=== PATIENT | male | born 1960 | race Two or more races ===

== ENCOUNTER 2020-05-23 08:16 | Outpatient (REF) | payer OTHER, SELFPAY ==
[2020-05-23 09:27] LABS: MANUAL DIFF FLAG NO
[2020-05-23 09:30] LABS: Basophils Percent Auto 0.5 % (0-2); Eosinophils Absolute Auto 0.2 X10*3/uL (0.0-0.4); Eosinophils Percent Auto 2.4 % (0-4); Hematocrit 37.1 % (42-52); Hemoglobin 11.3 g/dl (14.0-18.0); Imm Gran Abs Auto 0.02 X10*3/uL (0.00-0.03); Imm Gran Pct Auto 0.2 % (0.0-0.4); Lymphocytes Absolute Auto 2.9 X10*3/uL (1.2-4.9); Lymphocytes Percent Auto 34.6 % (20-40); Mean Corpuscular HGB Conc 30.5 g/dl (31.0-36.0); Mean Corpuscular Hemoglobin 26.8 pg (27.0-33.0); Mean Corpuscular Volume 87.9 fL (80-98); Mean Platelet Volume 10.9 fL (9.4-12.4); Monocytes Absolute Auto 0.8 X10*3/uL (0.1-1.2); Monocytes Percent Auto 10.1 % (2-11); Neutrophils Absolute Auto 4.3 X10*3/uL (2.0-8.3); Neutrophils Percent Auto 52.2 % (45-73); Platelet Count 348 X10*3/uL (160-400); Red Blood Count 4.22 X10*6/uL (4.60-5.80); White Blood Count 8.3 X10*3/uL (4.8-10.8)
[2020-05-23 09:59] LABS: Alanine Aminotransferase 10 U/L (0-40); Albumin Level 3.7 g/dL (3.5-5.0); Alkaline Phosphatase 133 U/L (39-117); Aspartate Amino Transferase 14 U/L (5-37); Bilirubin Direct < 0.2 mg/dL (0.0-0.5); Bilirubin Total 0.3 mg/dL (0.0-1.0); Total Protein 6.6 g/dL (6.5-8.0)
== END 2020-05-23 08:17 | disposition home or self-care (01) ==
LOC: HO.LAB 08:16
PROVIDERS: Visit Provider Internal Medicine
DX: K91.850 Pouchitis (principal)
CPT/HCPCS: 36415; 80076; 85025

== ENCOUNTER 2020-05-29 07:59 | Outpatient (REF) | payer OTHER, SELFPAY | END 2020-05-29 08:00 | disposition home or self-care (01) | LOC: HO.MDS 07:59 | PROVIDERS: Visit Provider Internal Medicine | DX: K50.90 Crohn's disease, unspecified, without complications (principal) | CPT/HCPCS: 96365; J3380 ==

== ENCOUNTER 2020-07-24 08:06 | Outpatient (REF) | payer OTHER, SELFPAY | END 2020-07-24 08:07 | disposition home or self-care (01) | LOC: HO.MDS 08:06 | PROVIDERS: Visit Provider Internal Medicine | DX: K50.90 Crohn's disease, unspecified, without complications (principal) | CPT/HCPCS: 86481; 96365; J3380 ==

== ENCOUNTER 2020-09-18 07:57 | Outpatient (REF) | payer OTHER, SELFPAY ==
[2020-09-20 23:46] LABS: TS Negative Control Passed; TS Panel A 0; TS Panel B 0; TS Positive Control Passed; TSpotTB Negative (SeeBelow)
== END 2020-09-18 07:58 | disposition home or self-care (01) ==
LOC: HO.MDS 07:57
PROVIDERS: Visit Provider Internal Medicine
DX: K50.018 Crohn's disease of small intestine with other complication (principal); K91.850 Pouchitis
CPT/HCPCS: 36415; 86481; 96365; J3380

== ENCOUNTER 2020-10-30 12:23 | Outpatient (REF) | payer OTHER, SELFPAY ==
[2020-10-30 13:05] LABS: MANUAL DIFF FLAG NO
[2020-10-30 13:09] LABS: Basophils Absolute Auto 0.1 X10*3/uL (0.0-0.2); Basophils Percent Auto 0.6 % (0-2); Eosinophils Absolute Auto 0.3 X10*3/uL (0.0-0.4); Eosinophils Percent Auto 2.6 % (0-4); Hemoglobin 10.4 g/dl (14.0-18.0); Imm Gran Abs Auto 0.02 X10*3/uL (0.00-0.03); Imm Gran Pct Auto 0.2 % (0.0-0.4); Lymphocytes Absolute Auto 2.2 X10*3/uL (1.2-4.9); Lymphocytes Percent Auto 21.8 % (20-40); Mean Corpuscular HGB Conc 28.9 g/dl (31.0-36.0); Mean Corpuscular Hemoglobin 24.9 pg (27.0-33.0); Mean Corpuscular Volume 86.3 fL (80-98); Mean Platelet Volume 10.2 fL (9.4-12.4); Monocytes Absolute Auto 0.8 X10*3/uL (0.1-1.2); Neutrophils Absolute Auto 6.7 X10*3/uL (2.0-8.3); Neutrophils Percent Auto 66.8 % (45-73); Platelet Count 448 X10*3/uL (160-400); Red Blood Count 4.17 X10*6/uL (4.60-5.80); Red Cell Distribution Width 15.3 % (11.0-16.0)
[2020-10-30 13:40] LABS: Alanine Aminotransferase 11 U/L (0-40); Albumin Level 3.3 g/dL (3.5-5.0); Alkaline Phosphatase 107 U/L (39-117); Aspartate Amino Transferase 15 U/L (5-37); Bilirubin Direct < 0.2 mg/dL (0.0-0.5); Bilirubin Total 0.2 mg/dL (0.0-1.0); C Reactive Protein 0.69 mg/dL (< or = 0.50); Total Protein 6.3 g/dL (6.5-8.0)
[2020-10-30 13:52] LABS: Erythrocyte Sedimentation Rate 29 MM/HR (0-15)
== END 2020-10-30 12:24 | disposition home or self-care (01) ==
LOC: HO.LAB 12:23
PROVIDERS: PCP Internal Medicine; Visit Provider Internal Medicine
DX: K50.018 Crohn's disease of small intestine with other complication (principal)
CPT/HCPCS: 36415; 80076; 85025; 85652; 86140

== ENCOUNTER 2020-11-13 07:16 | Outpatient (REF) | payer OTHER, SELFPAY | END 2020-11-13 07:17 | disposition home or self-care (01) | LOC: HO.MDS 07:16 | PROVIDERS: PCP Internal Medicine; Visit Provider Internal Medicine | DX: K50.90 Crohn's disease, unspecified, without complications (principal) | CPT/HCPCS: 96365; J3380 ==

== ENCOUNTER 2020-12-21 07:47 | Outpatient (REF) | payer OTHER, SELFPAY ==
[2020-12-21 08:37] LABS: MANUAL DIFF FLAG NO
[2020-12-21 08:40] LABS: Basophils Percent Auto 0.2 % (0-2); Eosinophils Percent Auto 0.4 % (0-4); Hematocrit 33.8 % (42-52); Hemoglobin 10.1 g/dl (14.0-18.0); Imm Gran Abs Auto 0.03 X10*3/uL (0.00-0.03); Imm Gran Pct Auto 0.3 % (0.0-0.4); Lymphocytes Absolute Auto 2.4 X10*3/uL (1.2-4.9); Lymphocytes Percent Auto 22.8 % (20-40); Mean Corpuscular HGB Conc 29.9 g/dl (31.0-36.0); Mean Corpuscular Hemoglobin 25.4 pg (27.0-33.0); Mean Corpuscular Volume 85.1 fL (80-98); Mean Platelet Volume 10.5 fL (9.4-12.4); Monocytes Absolute Auto 1.3 X10*3/uL (0.1-1.2); Monocytes Percent Auto 12.4 % (2-11); Neutrophils Absolute Auto 6.7 X10*3/uL (2.0-8.3); Neutrophils Percent Auto 63.9 % (45-73); Platelet Count 421 X10*3/uL (160-400); Red Blood Count 3.97 X10*6/uL (4.60-5.80); Red Cell Distribution Width 16.3 % (11.0-16.0); White Blood Count 10.4 X10*3/uL (4.8-10.8)
[2020-12-21 08:58] LABS: Alanine Aminotransferase 12 U/L (0-40); Albumin Level 3.6 g/dL (3.5-5.0); Alkaline Phosphatase 128 U/L (39-117); Aspartate Amino Transferase 16 U/L (5-37); Bilirubin Direct < 0.2 mg/dL (0.0-0.5); Bilirubin Total 0.2 mg/dL (0.0-1.0); C Reactive Protein 3.01 mg/dL (< or = 0.50); Total Protein 6.6 g/dL (6.5-8.0)
[2020-12-21 09:17] LABS: Erythrocyte Sedimentation Rate 34 MM/HR (0-15)
[2020-12-21 09:50] LABS: Leukocytes Stool Qualitative NEGATIVE (NEGATIVE)
[2020-12-21 11:18] LABS: CDIFF Ag Positive (Negative)
[2020-12-21 11:19] LABS: CDIFF Internal ctrl Dots and bkg OK (V); CDiff Toxin Negative (Negative)
[2020-12-21 13:06] LABS: CDiff Gene PCR POSITIVE (Negative)
== END 2020-12-21 07:48 | disposition home or self-care (01) ==
LOC: HO.LAB 07:47
PROVIDERS: PCP Internal Medicine; Visit Provider Internal Medicine
DX: K91.850 Pouchitis (principal); K50.90 Crohn's disease, unspecified, without complications
CPT/HCPCS: 36415; 80076; 80280; 82542; 85025; 85652; 86140; 87045; 87046; 87177; 87209; 87324; 87329; 87449; 87493; 89055

== ENCOUNTER 2021-01-10 08:15 | Outpatient (REF) | payer OTHER, SELFPAY | END 2021-01-10 08:16 | disposition home or self-care (01) | LOC: HO.MDS 08:15 | PROVIDERS: PCP Internal Medicine; Visit Provider Internal Medicine | DX: K50.90 Crohn's disease, unspecified, without complications (principal) | CPT/HCPCS: 96365; J3380 ==

== ENCOUNTER 2021-03-07 08:13 | Outpatient (REF) | payer OTHER, SELFPAY | END 2021-03-07 08:14 | disposition home or self-care (01) | LOC: HO.MDS 08:13 | PROVIDERS: PCP Internal Medicine; Visit Provider Internal Medicine | DX: K50.90 Crohn's disease, unspecified, without complications (principal) | CPT/HCPCS: 96365; J3380 ==

== ENCOUNTER 2021-05-02 08:05 | Outpatient (REF) | payer OTHER, SELFPAY | END 2021-05-02 08:06 | disposition home or self-care (01) | LOC: HO.MDS 08:05 | PROVIDERS: PCP Internal Medicine; Visit Provider Internal Medicine | DX: K50.90 Crohn's disease, unspecified, without complications (principal) | CPT/HCPCS: 96365; J3380 ==

== ENCOUNTER 2021-07-03 08:06 | Outpatient (REF) | payer OTHER, SELFPAY | END 2021-07-03 08:07 | disposition home or self-care (01) | LOC: HO.MDS 08:06 | PROVIDERS: PCP Internal Medicine; Visit Provider Internal Medicine | DX: K50.90 Crohn's disease, unspecified, without complications (principal) | CPT/HCPCS: 96365; J3380 ==

== ENCOUNTER 2021-08-29 08:40 | Outpatient (REF) | payer OTHER, SELFPAY | END 2021-08-29 08:41 | disposition home or self-care (01) | LOC: HO.MDS 08:40 | PROVIDERS: PCP Internal Medicine; Visit Provider Internal Medicine | DX: K50.018 Crohn's disease of small intestine with other complication (principal) | CPT/HCPCS: 96365; J3380 ==

== ENCOUNTER 2021-11-01 13:32 | Outpatient (REF) | payer OTHER, SELFPAY ==
[2021-11-03 19:11] LABS: TS Negative Control Passed; TS Panel A 0; TS Panel B 0; TS Positive Control Passed; TSpotTB Negative (Negative)
== END 2021-11-01 13:33 | disposition home or self-care (01) ==
LOC: HO.MDS 13:32
PROVIDERS: PCP Internal Medicine; Visit Provider Internal Medicine
DX: K50.00 Crohn's disease of small intestine without complications (principal); K91.850 Pouchitis
CPT/HCPCS: 36415; 86481; 96365; J3380

== ENCOUNTER 2021-12-27 07:55 | Outpatient (REF) | payer OTHER, SELFPAY ==
[2021-12-31 16:21] LABS: TS Negative Control Passed; TS Panel A 0; TS Panel B 0; TS Positive Control Passed; TSpotTB Negative (Negative)
== END 2021-12-27 07:56 | disposition home or self-care (01) ==
LOC: HO.MDS 07:55
PROVIDERS: PCP Internal Medicine; Visit Provider Internal Medicine
DX: K50.00 Crohn's disease of small intestine without complications (principal); K91.850 Pouchitis; Z86.73 Personal history of transient ischemic attack (TIA), and cerebral infarction without residual deficits
CPT/HCPCS: 36415; 86481; 96365; J1200; J3380

== ENCOUNTER 2022-03-21 09:51 | Outpatient (REF) | payer OTHER, SELFPAY | END 2022-03-21 09:52 | disposition home or self-care (01) | LOC: HO.MDS 09:51 | PROVIDERS: Visit Provider Internal Medicine | DX: K50.00 Crohn's disease of small intestine without complications (principal) | CPT/HCPCS: 96365; J3380 ==

== ENCOUNTER 2022-05-13 09:22 | Outpatient (REF) | payer OTHER, SELFPAY ==
[2022-05-26 08:20] LABS: Prometheus Anser VDZ SEE SEPERATE REPORT
== END 2022-05-13 09:23 | disposition home or self-care (01) ==
LOC: HO.LAB 09:22
PROVIDERS: Visit Provider Internal Medicine
DX: K91.850 Pouchitis (principal)
CPT/HCPCS: 36415; 80280; 82542

== ENCOUNTER 2022-06-13 10:17 | Outpatient (REF) | payer OTHER, SELFPAY | END 2022-06-13 10:18 | disposition home or self-care (01) | LOC: HO.MDS 10:17 | PROVIDERS: Visit Provider Internal Medicine | DX: K50.00 Crohn's disease of small intestine without complications (principal) | CPT/HCPCS: 96365; J3380 ==

== ENCOUNTER 2022-07-03 12:05 | Outpatient (REF) | payer OTHER, SELFPAY ==
[2022-07-03 12:20] LABS: MANUAL DIFF FLAG NO
[2022-07-03 13:27] LABS: Basophils Absolute Auto 0.1 X10*3/uL (0.0-0.2); Basophils Percent Auto 0.8 % (0-2); Eosinophils Absolute Auto 0.2 X10*3/uL (0.0-0.4); Eosinophils Percent Auto 2.2 % (0-4); Hematocrit 40.3 % (42.0-52.0); Hemoglobin 12.7 g/dl (14.0-18.0); Imm Gran Abs Auto 0.03 X10*3/uL (0.00-0.03); Imm Gran Pct Auto 0.3 % (0.0-0.4); Lymphocytes Absolute Auto 2.9 X10*3/uL (1.2-4.9); Lymphocytes Percent Auto 28.4 % (20-40); Mean Corpuscular HGB Conc 31.5 g/dl (31.0-36.0); Mean Corpuscular Hemoglobin 28.2 pg (27.0-33.0); Mean Corpuscular Volume 89.4 fL (80.0-98.0); Mean Platelet Volume 10.5 fL (9.4-12.4); Monocytes Absolute Auto 0.7 X10*3/uL (0.1-1.2); Monocytes Percent Auto 6.7 % (2-11); Neutrophils Absolute Auto 6.2 x10*3/uL (2.0-8.3); Neutrophils Percent Auto 61.6 % (45-73); Platelet Count 396 X10*3/uL (160-400); Red Blood Count 4.51 X10*6/uL (4.60-5.80); White Blood Count 10.1 X10*3/uL (4.8-10.8)
[2022-07-03 14:05] LABS: Erythrocyte Sedimentation Rate 25 MM/HR (0-15)
[2022-07-03 14:18] LABS: Alanine Aminotransferase 17 U/L (0-40); Albumin Level 3.7 g/dL (3.5-5.0); Alkaline Phosphatase 140 U/L (39-117); Anion Gap 13 (12-20); Aspartate Amino Transferase 22 U/L (5-37); Bilirubin Direct 0.2 mg/dL (0.0-0.5); Bilirubin Total 0.5 mg/dL (0.0-1.0); Blood Urea Nitrogen 12 mg/dL (9-16); C Reactive Protein 0.45 mg/dL (< or = 0.50); Carbon Dioxide 27 mmol/L (22-29); Chloride 108 mmol/L (96-108); Estimated Glomerular Filt Rate 40; Ferritin 194 ng/mL (20-250); Iron 32 mcg/dL (45-160); Percent Iron Saturation 17 % (15-50); Potassium 4.9 mmol/L (3.3-5.1); Sodium 143 mmol/L (135-145); Total Iron Binding Capacity 188 mcg/dL (228-428); Total Protein 6.7 g/dL (6.5-8.0); Unsaturated Iron Binding 156 ug/dL
[2022-07-03 15:05] LABS: Folate 9.7 ng/mL (> or = 4.0); Vitamin B12 1478 pg/mL (200-900)
== END 2022-07-03 12:06 | disposition home or self-care (01) ==
LOC: HO.LAB 12:05
PROVIDERS: Visit Provider Internal Medicine
DX: K91.850 Pouchitis (principal); R19.7 Diarrhea, unspecified
CPT/HCPCS: 36415; 80051; 80076; 82565; 82607; 82728; 82746; 83540; 84520; 85025; 85652; 86140

== ENCOUNTER 2022-09-30 08:44 | Outpatient (REF) | payer OTHER, SELFPAY | END 2022-09-30 08:45 | disposition home or self-care (01) | LOC: HO.MDS 08:44 | PROVIDERS: Visit Provider Internal Medicine | DX: K50.00 Crohn's disease of small intestine without complications (principal) | CPT/HCPCS: 96365; J3380 ==

== ENCOUNTER 2022-11-25 08:06 | Outpatient (REF) | payer OTHER, SELFPAY ==
[2022-11-27 22:59] LABS: TS Negative Control Passed; TS Panel A 1; TS Panel B 0; TS Positive Control Passed; TSpotTB Negative (Negative)
== END 2022-11-25 08:07 | disposition home or self-care (01) ==
LOC: HO.MDS 08:06
PROVIDERS: Visit Provider Internal Medicine
DX: K50.90 Crohn's disease, unspecified, without complications (principal); K91.850 Pouchitis; Z79.899 Other long term (current) drug therapy
CPT/HCPCS: 36415; 86481; 96365; J3380

== ENCOUNTER 2023-01-20 07:45 | Outpatient (REF) | payer OTHER, SELFPAY | END 2023-01-20 07:46 | disposition home or self-care (01) | LOC: HO.MDS 07:45 | PROVIDERS: PCP Internal Medicine; Visit Provider Internal Medicine | DX: K50.90 Crohn's disease, unspecified, without complications (principal) | CPT/HCPCS: 96365; J3380 ==

== ENCOUNTER 2023-03-17 08:01 | Outpatient (REF) | payer OTHER, SELFPAY | END 2023-03-17 08:02 | disposition home or self-care (01) | LOC: HO.MDS 08:01 | PROVIDERS: Visit Provider Internal Medicine | DX: K50.90 Crohn's disease, unspecified, without complications (principal) | CPT/HCPCS: 96365; J3380 ==

== ENCOUNTER 2023-06-30 08:26 | Outpatient (REF) | payer OTHER, SELFPAY | END 2023-06-30 08:27 | disposition home or self-care (01) | LOC: HO.MDS 08:26 | PROVIDERS: Visit Provider Internal Medicine | DX: K50.90 Crohn's disease, unspecified, without complications (principal) | CPT/HCPCS: 96365; J3380 ==

== ENCOUNTER 2023-08-26 08:27 | Outpatient (REF) | payer OTHER, SELFPAY | END 2023-08-26 08:28 | disposition home or self-care (01) | LOC: HO.MDS 08:27 | PROVIDERS: Visit Provider Internal Medicine | DX: K50.90 Crohn's disease, unspecified, without complications (principal) | CPT/HCPCS: 96365; 96375; J3380 ==

== ENCOUNTER 2023-10-21 12:06 | Outpatient (REF) | payer OTHER, SELFPAY ==
[2023-10-21 12:19] VITALS: BP 108/57; PULSE 76; RESP 20; TEMP 37.2; O2SAT 99
[2023-10-21] MEDS: Acetaminophen 325 MG TABLET 975 MG PO (12:31)
[2023-10-21] MEDS: Vedolizumab 300 MG in 0.9 % Sodium Chloride 250 ML 510 MG IV (13:42)
== END 2023-10-21 12:07 | disposition home or self-care (01) ==
LOC: HO.MDS 12:06
PROVIDERS: Visit Provider Internal Medicine
DX: K50.90 Crohn's disease, unspecified, without complications (principal)
CPT/HCPCS: 96365; J3380

== ENCOUNTER 2025-01-17 14:05 | Outpatient (REF) | payer OTHER, SELFPAY ==
[2025-01-17 14:23] LABS: MANUAL DIFF FLAG NO
[2025-01-17 14:46] LABS: Basophils Absolute Auto 0.1 X10*3/uL (0.0-0.2); Basophils Percent Auto 0.7 % (0-2); Eosinophils Absolute Auto 0.2 X10*3/uL (0.0-0.4); Eosinophils Percent Auto 3.2 % (0-4); Hematocrit 31.7 % (42.0-52.0); Hemoglobin 9.5 g/dl (14.0-18.0); Imm Gran Abs Auto 0.02 X10*3/uL (0.00-0.03); Imm Gran Pct Auto 0.3 % (0.0-0.4); Lymphocytes Absolute Auto 1.5 X10*3/uL (1.2-4.9); Mean Corpuscular Hemoglobin 24.9 pg (27.0-33.0); Mean Corpuscular Volume 83.2 fL (80.0-98.0); Mean Platelet Volume 10.9 fL (9.4-12.4); Monocytes Absolute Auto 0.6 X10*3/uL (0.1-1.2); Monocytes Percent Auto 8.3 % (2-11); Neutrophils Absolute Auto 4.8 x10*3/uL (2.0-8.3); Neutrophils Percent Auto 66.5 % (45-73); Platelet Count 349 X10*3/uL (160-400); Red Blood Count 3.81 X10*6/uL (4.60-5.80); Red Cell Distribution Width 15.9 % (11.0-16.0); White Blood Count 7.3 X10*3/uL (4.8-10.8)
[2025-01-17 15:21] LABS: Alanine Aminotransferase 7 U/L (0-40); Albumin Level 3.5 g/dL (3.5-5.0); Alkaline Phosphatase 71 U/L (39-117); Anion Gap 12 (12-20); Aspartate Amino Transferase 15 U/L (5-37); Bilirubin Direct < 0.2 mg/dL (0.0-0.5); Bilirubin Total 0.1 mg/dL (0.0-1.0); Blood Urea Nitrogen 22 mg/dL (9-16); C Reactive Protein 0.55 mg/dL (< or = 0.50); Carbon Dioxide 30 mmol/L (22-29); Chloride 107 mmol/L (96-108); Estimated Glomerular Filt Rate 47; Glucose Random 150 mg/dL (60-115); Iron 12 mcg/dL (45-160); Percent Iron Saturation 6 % (15-50); Potassium 4.4 mmol/L (3.3-5.1); Sodium 145 mmol/L (135-145); Total Iron Binding Capacity 215 mcg/dL (228-428); Total Protein 6.2 g/dL (6.5-8.0); Unsaturated Iron Binding 203 ug/dL
[2025-01-17 15:23] LABS: Erythrocyte Sedimentation Rate 23 MM/HR (0-15)
[2025-01-17 15:36] LABS: Ferritin 14 ng/mL (20-250)
[2025-01-17 15:46] LABS: Folate 18.5 ng/mL (> or = 4.0); Vitamin B12 715 pg/mL (200-900)
--- OUTSIDE RECORDS SUMMARY | 2025-01-17 17:11 | XMS_ITS | Data Portability ---
Author Organization [place] [facility], Main Office Address [address] [place] [phone] Assessment Encounter Date Assessment Date Assessment LastModified by Organization Details LastModified Time 04/22/2021 04/22/2021 Patient presente d to office today for their Medicare Annual Wellness Visit. Education was provided on healthy nutrition, including a diet rich in fruits and vegetables, minimizing simple carbohydrates, salt, and saturated fats. Encouraged regular cardiovascular exercise such as walking at least 30 minutes daily, 5 times per week. Emphasized preventive health measures and educated pt on fall prevention and community-based lifestyle interventions to help reduce health risks and promote healthy living. [email or web address] Not available 04/21/2021 17:40:35 Plan of Treatment Reminders Order Date Submit Date Provider Last Modified By Organization Details Last Modified Time Details Appointments None recorded. Lab None recorded. Referral None recorded. Procedures None recorded. Surgeries None recorded. Imaging None recorded. Medication Orders zolpidem 10 mg tablet [address] [facility] #[id number], [address] [place], [address], 16:49:24 ferrous sulfate 325 mg (65 mg iron) tablet [address] [facility] #[id number], [address] [place], [address], 13:57:08 Vitamin C 500 mg tablet [address] [facility] #4471, [address] [place], [address], 13:57:08 cetirizine 10 mg tablet 2020 021 [facility], [address] [place], [address], 09:11:31 fluticason e propionate 50 mcg/actuat ion nasal spray,susp ension 2020 021 [facility], [address] [place], [address], 1 09:11:28 montelukas t 10 mg tablet 2020 021 [facility], [address] [place], [address], 1 09:11:29 metformin 500 mg tablet 2020 021 [facility], [address] [place], [address], 1 09:11:33 Mayito Multivitam in For Men 200 mcg-175 mcg-250 mcg tablet 2020 021 [facility], [address] [place], [address], 1 09:11:28 Oyster Shell Calcium-Vi tamin D3 500 mg-5 mcg (200 unit) tablet 2020 021 [email or web address] [facility]/Pharmacy #4471, [address] [place], [address], 1 13:07:28 omeprazole 20 mg capsule,de layed release 2020 021 [facility], [address] [place], [address], 1 09:11:33 atorvastat in 40 mg tablet 2020 021 [facility], [address] [place], [address], 1 09:11:32 ProAir HFA 90 mcg/actuat ion aerosol inhaler 2020 021 INTERFACE [facility]acy #4471, [address] [place], [address], 09:11:31 Mapap Arthritis Pain 650 mg tablet,ext ended release 2020 021 INTERFACE [facility]armacy #4471, [address] [place], [address], 09:11:30 aspirin 25 mg-dipyrid amole 200 mg capsule,ex t.release 12 hr multiphase 2020 021 INTERFACE [facility]armacy #4471, [address] [place], [address], 09:11:32 meloxicam 15 mg tablet 2020 021 INTERFACE [facility] #4471, [address] [place], [address], 09:11:33 metoprolol succinate ER 50 mg tablet,ext ended release 24 hr 2020 021 INTERFACE [facility] #4471, [address] [place], [address], 09:11:30 ferrous sulfate 325 mg (65 mg iron) tablet 2020 021 INTERFACE [facility] #4471, [address] [place], [address], 09:11:34 Patient TargetsNo targets recorded. Patient Instructions Encounter Date Encounter Id Patient Instructions Last Modified By Organization Details Last Modified Time 04/10/2021 [id number] CPE labs-p [email or web address] Not available 03/27 16:50:46 04/22/2021 [id number] advance care planning: care instructions [email or web address] Not available 04/22/2021 15:43:47 Discussed and explained advance directives such as standard forms to the patient. Face to face discussion lasted for a duration of 30___ minutes. [email or web address] Not available 04/21/2021 17:43:04 Reason for Referral None Reported. Results Created Date Observation Date Name Description Value Unit Range Abnormal Flag Note LastModifiedBy Organization Detail LastModifiedTime Result Notes None recorded. Problems Name Problem SNOMED Code Status Onset Date Resolution Date Notes Provider Name and Address Organization Details Recorded Time Chronic disease 79715079 Completed 201903/16/2020 [employer], [facility] 0 10:38:31 History of colectomy 369948525 Active 2019 [employer], [facility] 0 10:32:23 Depressiv e disorder 72341761 Active 2019 [employer], [facility] 0 10:33:57 Hyperchol esterolem ia 21369769 Active 2019 [employer], [facility] 0 10:36:21 Gastroeso phageal reflux disease 501780790 Active 2019 [employer], [facility] 0 10:36:40 Insomnia 289445192 Active 2019 [employer], [facility] 0 10:37:27 Type 2 diabetes mellitus 00030593 Completed 201903/16/2020 Jareth Carlos, DO [address] [facility],[address], [place], [address] , [facility] 0 11:58:17 Crohn's disease 80205468 Active 2019 [employer], [facility] 0 10:38:46 Iron deficienc y anemia 16322400 Active 2019 [employer], [facility] 0 10:40:22 CVA - cerebrova scular accident due to cerebral artery occlusion 472972751 Active 2019 Jareth Carlos, DO [address] [facility],[address], [place], [address] , [place] [facility] 0 11:50:39 Ataxic gait 83579165 Active 2019 Jareth Carlos, DO [address] [facility],[address], [place], [address] , [employer], [employer] 0 11:51:02 Multiple complicat ions due to type 2 diabetes mellitus Completed 201903/16/2020 Jareth Carlos, DO [address] [facility],[address], [place], [address] , [employer], [employer] 0 12:03:19 Cholecyst ectomy Active 2019 Jareth Carlos, DO [address] [facility],[address], [place], [address] , [employer], [employer] 0 11:51:37 Appendect ana Active 2019 Jareth Carlos DO [address] [facility],[address], [place], [address] , [employer], [employer] 0 11:51:54 Tonsillec ting Active 2019 Jareth Carlos, DO [address] [facility],[address], [place], [address] , [employer], [employer] 0 11:52:00 Recurrent falls 748921990 Active 2019 Jareth Carlos, DO [address] [facility],[address], [place], [address] , [employer], [employer] 0 11:54:33 Heavy tobacco smoker 50490170885 4103 Active 2019 Jareth Carlos, DO [address], [place], [address] , [employer], [employer] 0 11:54:56 Tattoo of skin 10484676168 2 Active 2019 Jareth Carlos DO [address] [facility],[address], [place], [address] , [employer], [employer] 0 12:04:46 Active or passive immunizat ion Completed 201910/07/2020 STEVO GODDARD [facility] 1 12:33:09 Tension-t ype headache 237896537 Active 2019 FRANCY [facility] 0 03:43:05 At increased risk of nutrition al deficit 920119439 Active 2019 FRANCY hall [facility] 0 04:00:58 Screening for malignant neoplasm of colon Active 2019 FRANCY hall [facility] 0 04:14:09 Impaired glucose tolerance 8543041 Active 2019 [place] [facility] 0 04:40:38 Prostate specific antigen above reference range 949152697 Active 2019 Jareth Carlos, DO [address], [place], [address] , [facility] 0 10:12:03 Dry eyes 650417345 Active 2019 Jareth Carlos, DO [address], [place], [address] , [facility] 0 10:12:06 Crohn's disease of colon 37756956 Active 2019 Jareth Carlos, DO [address], [place], [address] , [facility] 0 10:12:08 Edema of lower extremity 881957058 Active 2019 Jareth Carlos DO [address], [place], [address] , [facility] 0 10:12:10 Problem Notes None recorded. Procedures Surgical History Date Name Laterality Status Provider Name and Address Organization Details Recorded Time Total Colectomy completed GHANSHYAM CANTU [facility] 03/16/2020 10:44:23 Imaging Results None recorded. Procedure Notes None recorded. Medical Equipment None Reported. Allergies No known drug allergies Medications Name Sig Start Date Stop Date Status Note LastModified by Organization Details LastModified Time fluoxetine 40 mg capsule TOME 1 C PSULA POR V A ORAL CADA MA THOM active Not Available Not Available No t Available atorvastat in 40 mg tablet TOME SHANTEL TABLETA TODOS LOS D active Not Available Not Available No t Available metformin 500 mg tablet TOME SHANTEL TABLETA DOS VECES AL JENNIFER active Not Available Not Available No t Available aspirin 25 mg-dipyrid amole 200 mg capsule,ex t.release 12 hr multiphase TOME SHANTEL CAPSULA DOS VECES AL JENNIFER active Not Available Not Available No t Available atorvastat in 80 mg tablet Take 1 tablet every day by oral route at bedtime. 06/05 completed Not Available Not Available Not Available Vitamin C 500 mg tablet TOME SHANTEL TABLETA TODOS LOS D active Not Available Not Available No t Available loperamide 2 mg capsule TOME 2 C PSULAS CUATRO VECES AL D A CUANDO SEA NECESARI O active Not Available Not Available No t Available cetirizine 10 mg tablet TOME SHANTEL TABLETA TODOS LOS D active Not Available Not Available No t Available metoprolol succinate ER 50 mg tablet,ext ended release 24 hr TOME SHANTEL TABLETA TODOS LOS REGALADO active Not Available Not Available No t Available meloxicam 15 mg tablet TOME SHANTEL TABLETA TODOS LOS D CUANDO SEA NECESARI O 2020 active Not Available Not Available Not Avai lable prednisone 5 mg tablet PLEASE SEE ATTACHED FOR DETAILED DIRECTIO NS active Not Available Not Available No t Available quetiapine 200 mg tablet 03/16 completed Not Available Not Available Not Available metronidaz ole 500 mg tablet 05/15 completed Not Available Not Available Not Available ciprofloxa ciarra 500 mg tablet TOME SHANTEL TABLETA CADA 12 HORAS POR 10 D 05/15 completed Not Available Not Available Not Available aspirin 81 mg tablet,del ayed release Take 1 tablet every day by oral route for 90 days. 03/16 completed Not Available Not Available Not Available quetiapine 100 mg tablet 10/07 completed Not Available Not Available Not Available vancomycin 125 mg capsule TOME 1 C PSULA POR V A ORAL CADA SEIS HORAS active Not Available Not Available No t Available cyprohepta dine 4 mg tablet Take 1 tablet every day by oral route at bedtime for 30 days. active Not Available Not Available No t Available dicyclomin e 20 mg tablet Take 1 tablet every day by oral route for 90 days. active Not Available Not Available No t Available ferrous sulfate 325 mg (65 mg iron) tablet TOME SHANTEL TABLETA TODOS LOS REGALADO active Not Available Not Available No t Available nicotine 21 mg/24 hr daily transderma l patch APPLY 1 PATCH TOPICALL Y TO SKIN ONCE DAILY active Not Available Not Available No t Available omeprazole 20 mg capsule,de layed release TOME SHANTEL C PSULA TODOS LOS D active Not Available Not Available No t Available montelukas t 10 mg tablet TOME SHANTEL TABLETA TODOS LOS REGALADO active Not Available Not Available No t Available zolpidem 10 mg tablet TOME SHANTEL TABLETA TODOS LOS D AL ACOSTARS E 2020 active Not Available Not Available Not Avai lable albuterol sulfate HFA 90 mcg/actuat ion aerosol inhaler TOME DOS INHALACI ONES POR V A ORAL CADA CUATRO HORAS active Not Available Not Available No t Available fluoxetine 20 mg capsule TOME SHANTEL C PSULA TODOS LOS D EN LA MA THOM active Not Available Not Available No t Available fluticason e propionate 50 mcg/actuat ion nasal spray,susp ension SPRAY 1 SPRAY INTO EACH NOSTRIL TODOS LOS D active Not Available Not Available No t Available amitriptyl ine 100 mg tablet Take 1 tablet every day by oral route at bedtime for 30 days. active Not Available Not Available No t Available Artificial Tears (polyvinyl alcohol) 1.4 % eye drops APPLY 2 DROP(S) EVERY DAY BY OPHTHALM IC ROUTE FOR 30 DAYS. active Not Available Not Available No t Available amoxicilli n 875 mg-potassi um clavulanat e 125 mg tablet TOME SHANTEL TABLETA POR V?A ORAL CADA DOCE HORAS POR 7 D? 03/16 completed Not Available Not Available Not Available amoxicilli n 500 mg-potassi um clavulanat e 125 mg tablet TOME SHANTEL TABLETA POR V A ORAL CADA OCHO HORAS POR 7 REGALADO 03/16 completed Not Available Not Available Not Available Oyster Shell Calcium-Vi tamin D3 500 mg-5 mcg (200 unit) tablet TOME DOS TABLETAS POR V A ORAL TODOS LOS D active Not Available Not Available No t Available Mapap Arthritis Pain 650 mg tablet,ext ended release TAKE 2 TABLET(S ) EVERY 8 HOURS BY ORAL ROUTE NEEDED. active Not Available Not Available No t Available mirtazapin e 7.5 mg tablet Take 1 tablet every day by oral route at bedtime. active Not Available Not Available No t Available Boostrix Tdap 2.5 Lf unit-8 mcg-5 Lf/0.5 mL intramuscu lar suspension PHARMACY ADMINIST ERED 06/05 completed Not Available Not Available Not Available Humira Pen 40 mg/0.8 mL subcutaneo us kit Inject 1 mL every day by sub-q route for 28 days. 03/16 completed Not Available Not Available Not Available quetiapine 50 mg tablet TOME SHANTEL TABLETA POR V A ORAL AL ACOSTARS E CUANDO SEA NECESARI O active Not Available Not Available No t Available diclofenac 1 % topical gel APPLY 2 GRAMS TO THE AFFECTED AREA CUATRO VECES AL D A active Not Available Not Available No t Available Mayito Multivitam in For Men 200 mcg-175 mcg-250 mcg tablet Take 1 tablet every day by oral route in the morning for 30 days. 2020 active Not Available Not Available Not Avai lable Spectravit e Ultra Men 50 Plus 300 mcg-60 mcg-600 mcg-300 mcg tablet TOME SHANTEL TABLETA TODOS LOS REGALADO EN LA [facility] 10/08 completed Not Available Not Available Not Available Glucerna 1.5 Schuyler 0.08 gram-1.5 kcal/mL oral liquid Take 237 mL 3 times a day by oral route. 05/15 completed taking ensure Not Available Not Available Not Available Shingrix (PF) 50 mcg/0.5 mL intramuscu lar suspension , kit 06/05 completed Not Available Not Available Not Available Afluria Qd 2018- (36 mos up)(PF)60 mcg (15 mcg x4)/0.5 mL IM syringe 03/16 completed Not Available Not Available Not Available Fluzone Quad (PF) 60 mcg (15 mcg x 4)/0.5 mL IM syringe TO BE ADMINIST ERED BY PHARMACI ST FOR IMMUNIZA TION 06/05 completed Not Available Not Available Not Available Vitals Date Recorded Body height Heart rate Respiratory rate Body temperature Body mass index (BMI) Body weight Oxygen saturation Oxygen saturation in Arterial blood by Pulse oximetry Systolic blood pressure Diastolic blood pressure Provider Name and Address Organization Details Last Updated DateTime 1 165.1 cm 70 /min 16 /min 98.3 [degF] 21 kg/m2 18300.6 4 g 98 % 98 % 100 mm[Hg] 60 mm[Hg] GHANSHYAM AGRAWALIO [facility] 1 08:51:24 Social History Question Answer Notes LastModified by [employer] Details LastModified Time Tobacco Smoking Status Current Some Day Smoker GHANSHYAM ELLISONJHON hall [facility] 03/16/2020 10:42:48 Do You Have An Advance Directive? No Information not available 03/16/2020 What Is Your Level Of Caffeine Consumption? Moderate Information not available 03/16/2020 How Much Tobacco Do You Chew? None Information not available 03/16/2020 What Type Of Diet Are You Following? REGULAR Information not available 03/16/2020 Which Illicit Or Recreational Drugs Have You Used? Denied Information not available 03/16/2020 Are There Any Guns Present In Your Home? No Information not available 03/16/2020 Hard Of Hearing Or Deaf In One Or Both Ears? No Information not available 03/16/2020 Legally Blind In One Or Both Eyes? No Information no t available 03/16/2020 Live Alone Or With Others? Alone Information not available 03/16/2020 How Many Children Do You Have? 9+ 13 Information not available 03/16/2020 Seat Belts Used Routinely Yes Information not available 03/16/2020 Are You Sexually Active? No Information not available 03/16/2020 Smoke Alarm In Home Yes Information not available 03/16/2020 How Much Tobacco Do You Smoke? 1 PPW Information not available 03/16/2020 General Stress Level Low Information not available 03/16/2020 Sex: Unknown Functional Status Question Answer Note LastModified by [employer] Details LastModified Time What is your level of alcohol consumption? None Information not available 03/16/2020 Are you currently employed? No Information not available 03/16/2020 Are you able to walk? YESASSIST Information not available 03/16/2020 Are you able to care for yourself? Yes Information not available 03/16/2020 What is your exercise level? None Information not available 03/16/2020 Mental Status None recorded. Family History Nothing Reported. Medical History Condition Response Coronary Artery Disease N Gout N Other N Blood Diseases N Kidney Stones N Hyperthyroidism N Blood Transfusion N Breast Cancer N Depression Y COPD N Lung Disease N Hypothyroidism N Developmental or Behavioral Disorders N Defects or Inherited Disease N Breast Problem N Difficulty Swallowing N Anesthesia Complications N Meniere's disease N Anxiety Disorder Y Muscle, Joint, or Bone Problems N Obesity N Vision or Eye Problems N Arthritis N Polyps N Infertility N Mental Disorder N Cancer N Varicosities N Stroke N Endometriosis N Bladder or Kidney Problems N High Cholesterol Y Liver Disease N Headaches N Fibromyalgia N Kidney Disease N Allergies/Hayfever N Heart Problems N Ear or Hearing Problems N Hospitalizations N Thyroid Problems N GI Problems N ADD/ADHD N Skin Problems N Eating Disorder N Anemia Y MRSA exposure N Constipation N Mental Illness N Ovarian Cancer N Diabetes Y Bedwetting N Seizures/Epilepsy N Tuberculosis N AIDS/HIV N Congestive Heart Failure (CHF) N Eczema N Diverticulitis N Abuse/Domestic Violence N Asthma N Reflux/GERD Y Hepatitis N Heart Disease N Pulmonary Embolism N Chronic Ear Infections N Pre-Eclampsia N Hypertension N Chicken Pox N Autism Spectrum Disorder (ASD) N Osteoporosis N Thrombophilias N Immunizations Vaccine Type Date Status Note Provider Nam e and Address Organization Details Recorded Time Influenza, split virus, quadrivalent, preservative 9 completed GHANSHYAM hall [facility] 04/12/2020 14:42:36 Influenza, split virus, quadrivalent, preservative 0 completed Jareth Carlos DO [address] [place] [address],[address], [address], [facility] 06/05/2020 09:42:54 zoster recombinant 0 completed Jareth Carlos DO [address] [place] [address],[address], [address], [facility] 06/05/2020 09:43:24 Tdap 0 completed Jareth Carlos DO [address] [place] [address],[address], [place], [address], [facility] 06/05/2020 09:43:41 COVID-19, subunit, rS-nanoparticle+M atrix-M1 Adjuvant, PF, 0.5 mL 1 completed Maggie hall [place] [facility] 12/24/2020 10:11:45 COVID-19, subunit, rS-nanoparticle+M atrix-M1 Adjuvant, PF, 0.5 mL 1 completed Maggie hall, [employer] [facility] 01/12/2021 14:45:41 Past Encounters Encounter ID Performer Location Encounter Start Date Encounter Closed Date Diagnosis/Indication Diagnosis SNOMED-CT Code Diagnosis ICD10 Code Diagnosis Note [id number] DO WESTLEY Bergman [address] [place] [address] 03/16/2020 09:29:46 03/16/2020 12:12:29 Crohn's disease 00650577 K50.90 f/u w/GI: Dr Rakan Adames Ataxic gait 83657435 R26 .0 cane CVA - cere brovascular accident due to cerebral artery occlusion 783735951 I63.50 atorv 80, asa/dip Gastroesop hageal reflux disease 340757025 K21.9 Depressive disorder 3548 9007 F32.9 cont rx Heavy tobacco smoker 879 7435990 64643 Z72.0 Hypercholesterolemia 136 06374 E78.2 atrov 80 Insomnia 636820721 G47.0 0 cont rx Iron defic iency anemia 02831620 D50.9 ck labs New patien t screening done 591699373 Z76.89 Viral screening 03402357 4 Z11.59 Active or passive immunization 434188744 Z23 Nutritional disorder 249 2009 E46 Anorexia symptom 4962215 05 R63.0 Recurrent falls 69846938 2 R29.6 Hypertensive disorder 38 076042 I10 Urinary incontinence 165 378293 R32 Pain of right thigh 3169 247015 82647 M79.651 [id number] DO WESTLEY Bergman [address] [address] 04/13/2020 13:34:20 04/13/2020 16:25:17 Screening for malignant neoplasm of colon 889697220 Z12.11 Adult heal th examination 421971471 Z00.01 normal cpe labs reviewed Screening for cardiovascular system disease 455258849 Z13.6 CVA - cere brovascular accident due to cerebral artery occlusion 734491424 I63.50 atorv 80, asa/dip Crohn's disease 19641948 K50.90 f/u w/GI: Dr Rakan Adames Ataxic gait 54891933 R26 .0 cane Gastroesop hageal reflux disease 607259609 K21.9 Depressive disorder 3548 9007 F32.9 cont rx Heavy tobacco smoker 853 5647541 40303 Z72.0 Hypercholesterolemia 136 51597 E78.2 atrov 80 Insomnia 934579903 G47.0 0 cont rx Viral screening 54316099 4 Z11.59 Active or passive immunization 484242324 Z23 Anorexia symptom 0593656 05 R63.0 Recurrent falls 37104381 2 R29.6 Hypertensive disorder 38 400041 I10 Urinary incontinence 165 006627 R32 Pain of right thigh 3169 856608 89682 M79.651 [id number] Jareth Carlos [facility] [address] [place] [address] 05/15/2020 09:33:52 05/15/2020 12:54:21 Active or passive immunization 242358079 Z23 flu, shingles, Tdap CVS-p Iron defic iency anemia 67466431 D50.9 ck labshgb 9.0,hct34. 3, RDW 19, MCH24.3 04/13/20 serum ferritin/T IBC-p Insomnia 802704381 G47.0 0 quetiapine 100 stable w/meds Gastroesop hageal reflux disease 808296942 K21.9 omeprazole 20 Hypercholesterolemia 136 30889 E78.2 Chol 144, Trig 133, HDL 70, LDL 47.4 04/13/20 atrov 80 decreased to 40 Ataxic gait 24051242 R26 .0 cane Crohn's disease 19959159 K50.90 f/u w/GI: Dr Rakan Adames dicyclomin e 20 stable Heavy tobacco smoker 218 4247248 05421 Z72.0 cont.to smoke 4-5 cig/day, ready to quit req cessation assistance nicotine 21 mg/24 hr daily TD t/i risk factors and non-smokin g TD on At [facility] ed risk of nutritional deficit 831053642 Z91.89 MVI, calcium-vi t D3 Ensure nut. supp Depressive disorder 3548 9007 F32.9 cont rx denies s/sx's stable w/meds CVA - cere brovascular accident due to cerebral artery occlusion 755021275 I63.50 atorv 40, asa/dip Tension-type headache 39 7159475 G44.209 Mapap 650 Screening for malignant neoplasm of colon 569450165 Z12.11 colonoscop y @[facility] - Dr. Nolberto Adames request report-p Prostate s pecific antigen above reference range 494147681 R97.20 PSA-5.20 04/13/20 Urology referral-p Impaired g lucose tolerance 4580984 R73.02 Hba1c 5.8 04/13/20 NCS diet, lifestyle change [id number] Jareth Carlos [facility] [address] [place] [address] 06/05/2020 08:52:29 06/05/2020 10:26:36 Impaired glucose tolerance 9981280 R73.02 Hba1c 5.8 04/13/20 NCS diet, lifestyle change Metformin 500 mg bid Gastroesop hageal reflux disease 255878686 K21.9 omeprazole 20 Insomnia 249273453 G47.0 0 quetiapine 50 stable w/meds Hypercholesterolemia 136 82696 E78.2 Chol 144, Trig 133, HDL 70, LDL 47.4 04/13/20 atrov 80 decreased to 40 Iron defic iency anemia 65899772 D50.9 ck labshgb 9.0,hct34. 3, RDW 19, MCH24.3 04/13/20 serum ferritin/T IBC-p Active or passive immunization 852707563 Z23 UTD- records requested Ataxic gait 98705550 R26 .0 cane Crohn's disease 97777614 K50.90 f/u w/GI: Dr Rakan Adames dicyclomin e 20 stable Heavy tobacco smoker 179 4594641 53986 Z72.0 cont.to smoke 4-5 cig/day, ready to quit req cessation assistance nicotine 21 mg/24 hr daily TD t/i risk factors and non-smokin g TD on reports stopped smoking on 05/19/20 reports nicotine patch was helpful. At [facility] ed risk of nutritional deficit 753103523 Z91.89 MVI, calcium-vi t D3 Ensure nut. supp Tension-type headache 39 8539565 G44.209 Mapap 650 Depressive disorder 3548 9007 F32.9 cont rx denies s/sx's stable w/meds followed by psych CVA - cere brovascular accident due to cerebral artery occlusion 993858424 I63.50 atorv 40, asa/dip Screening for malignant neoplasm of colon [id number] Z12.11 colonoscop y @[facility] - Dr. Nolberto Adames request report-p Prostate s pecific antigen above reference range 132065628 R97.20 PSA-5.20 04/13/20 Urology referral-p Dry eyes 445338814 H04.1 29 artificial tears Crohn's di sease of colon 25899678 K50.10 Entyvio infusions @ [facility] followed by Nolberto Adames Edema of l ower extremity 314102646 R60.0 compressio n stocking Tattoo of skin 488731940 1 02 L81.8 face tattoo Allergic rhinitis 531616 04 J30.9 cetirizine 10 mg, fluticason e, montelukas t 10 Asthma 012570885 J45.90 9 05181 Jareth Carlos [facility] [address] [place] [address] 2020 08:46:48 2020 09:29:05 Impaired glucose tolerance 8338371 R73.02 Hba1c 5.8 04/13/20 NCS diet, lifestyle change Metformin 500 mg bid Gastroesop hageal reflux disease 238962548 K21.9 omeprazole 20 Insomnia 978169522 G47.0 0 quetiapine 50 stable w/meds Not taking quetiapine as he feels is not helpful On Zolpidem 10 mg Has visit with new psych today Hypercholesterolemia 136 68650 E78.2 Chol 144, Trig 133, HDL 70, LDL 47.4 04/13/20 atrov 80 decreased to 40 Allergic rhinitis 576906 04 J30.9 cetirizine 10 mg, fluticason e, montelukas t 10 Asthma 803050346 J45.90 9 On Proair Tension-type headache 39 4871076 G44.209 Mapap 650 Iron defic iency anemia 95228756 D50.9 ck labshgb 9.0,hct34. 3, RDW 19, MCH24.3 04/13/20 serum ferritin/T IBC-p Active or passive immunization 634903983 Z23 UTD- records requested Heavy tobacco smoker 490 9011893 42195 Z72.0 cont.to smoke 4-5 cig/day, ready to quit req cessation assistance nicotine 21 mg/24 hr daily TD t/i risk factors and non-smokin g TD on reports stopped smoking on 05/19/20 reports nicotine patch was helpful. Reports restating smoking yesterday due to stress. Offered patches again but will hold off Ataxic gait 43687662 R26 .0 cane Referred to neurology on 06/05/20-p Crohn's disease 78729788 K50.90 f/u w/GI: Dr Rakan Adames dicyclomin e 20 stable Entyvio infusions @ [facility] followed by Nolberto Adames At [facility] ed risk of nutritional deficit 120506963 Z91.89 MVI, calcium-vi t D3 Ensure nut. supp Depressive disorder 3548 9007 F32.9 cont rx denies s/sx's stable w/meds followed by psych CVA - cere brovascular accident due to cerebral artery occlusion 619094993 I63.50 atorv 40, asa/dip Referred to neurology on 06/05/20-p Screening for malignant neoplasm of colon 154315155 Z12.11 colonoscop y @[facility] - Dr. Nolberto Adames request report-p Prostate s pecific antigen above reference range 051225574 R97.20 PSA-5.20 04/13/20 Urology referral-p Dry eyes 234748855 H04.1 29 artificial tears Edema of l ower extremity 167020954 R60.0 compressio n stocking Tattoo of skin 794987920 1 02 L81.8 face tattoo Skin hypopigmented 28915 000 L81.5 Referral to dermatolog y 42733 Jareth Carlos DO [facility] [address] [place] [address] 08/08/2020 08:44:05 08/08/2020 09:06:45 Hypercholesterolemia 10667336 E78.2 Chol 144, Trig 133, HDL 70, LDL 47.4 04/13/20 atrov 80 decreased to 40 Tolerating Atorvastat in 40 mg. No side effects Gastroesop hageal reflux disease 164749415 K21.9 omeprazole 20 Sees GI Insomnia 510235008 G47.0 0 quetiapine 50 stable w/meds Not taking quetiapine as he feels is not helpful On Zolpidem 10 mg Has visit with new psych today-p Impaired g lucose tolerance 9675743 R73.02 Hba1c 5.8 04/13/20 NCS diet, lifestyle change Metformin 500 mg bid Crohn's disease 69823023 K50.90 f/u w/GI: Dr Rakan Adames dicyclomin e 20 stable Entyvio infusions @ [facility] followed by Nolberto Adames Last seen three months ago by Dr. Adames. Gets monthly infusions of Entyvio. Denies any abdominal pain, blood in stool. Only frequent diarrhea CVA - cere brovascular accident due to cerebral artery occlusion 410356253 I63.50 atorv 40, asa/dip Referred to neurology on 06/05/20-p Has not seen neurology or gotten an appt. Will follow up-p Heavy tobacco smoker 990 3177649 85540 Z72.0 cont.to smoke 4-5 cig/day, ready to quit req cessation assistance nicotine 21 mg/24 hr daily TD t/i risk factors and non-smokin g TD on reports stopped smoking on 05/19/20 reports nicotine patch was helpful. Reports restating smoking yesterday due to stress. Offered patches again but will hold off Ataxic gait 18625009 R26 .0 cane Referred to neurology on 06/05/20-p Prostate s pecific antigen above reference range 006648861 R97.20 PSA-5.20 04/13/20 Urology referral-p Allergic rhinitis 327671 04 J30.9 cetirizine 10 mg, fluticason e, montelukas t 10 Asthma 897112917 J45.90 9 On Proair Tension-type headache 39 2954452 G44.209 Mapap 650 Iron defic iency anemia 80477449 D50.9 ck labshgb 9.0,hct34. 3, RDW 19, MCH24.3 04/13/20 serum ferritin/T IBC-p At [facility] ed risk of nutritional deficit 644940740 Z91.89 MVI, calcium-vi t D3 Ensure nut. supp Depressive disorder 3548 9007 F32.9 cont rx denies s/sx's stable w/meds followed by psych Active or passive immunization 190393115 Z23 UTD- records requested Body mass index 20-24 - normal 988047808 Z68.21 Diet and exercise 41751 Jareth Carlos, DO [facility] [address] [place] [address] 10/08/2020 13:45:46 10/08/2020 13:57:32 Crohn's disease 64439442 K50.90 f/u w/GI: Dr Rakan Adames dicyclomin e 20 stable Entyvio infusions @ [facility] followed by Nolberto Adames Last seen three months ago by Dr. Adames. Gets monthly infusions of Entyvio. Denies any abdominal pain, blood in stool. Only frequent diarrhea -followed by [facility] CVA - cere brovascular accident due to cerebral artery occlusion 657032386 I63.50 atorv 40, asa/dip Referred to neurology on 06/05/20-p Has not seen neurology or gotten an appt. Will follow up-p - has not seen neuro-p Hypercholesterolemia 136 91252 E78.2 Chol 144, Trig 133, HDL 70, LDL 47.4 04/13/20 atrov 80 decreased to 40 Tolerating Atorvastat in 40 mg. No side effects Ataxic gait 57102878 R26 .0 cane Referred to neurology on 06/05/20-p -has not seen neuro-p Gastroesop hageal reflux disease 335103779 K21.9 omeprazole 20 Sees GI Insomnia 229113871 G47.0 0 quetiapine 50 stable w/meds Not taking quetiapine as he feels is not helpful On Zolpidem 10 mg Has visit with new psych today-p -awaiting psych call-p Impaired g lucose tolerance 3327810 R73.02 Hba1c 5.8 04/13/20 NCS diet, lifestyle change Metformin 500 mg bid, asa/dip recheck-p Heavy tobacco smoker 353 9265301 26543 Z72.0 cont.to smoke 4-5 cig/day, ready to quit req cessation assistance nicotine 21 mg/24 hr daily TD t/i risk factors and non-smokin g TD on reports stopped smoking on 05/19/20 reports nicotine patch was helpful. Reports restating smoking yesterday due to stress. Offered patches again but will hold off Prostate s pecific antigen above reference range 658206884 R97.20 PSA-5.20 04/13/20 Urology referral-p Allergic rhinitis 064321 04 J30.9 cetirizine 10 mg, fluticason e, montelukas t 10 Asthma 356459219 J45.90 9 On Proair Tension-type headache 39 6423487 G44.209 Mapap 650 Iron defic iency anemia 46763301 D50.9 ck labs hgb 9.0, hct 34.3, RDW 19, MCH 24.3 04/13/20 iron studies-p ferrous/vi t c At [facility] ed risk of nutritional deficit 960178692 Z91.89 MVI, calcium-vi t D3 Ensure nut. supp mirtaz 7.5 Depressive disorder 3548 9007 F32.9 cont rx denies s/sx's stable w/meds followed by psych -awaiting call-p Body mass index 20-24 - normal 612815024 Z68.21 Diet and exercise 87274 Jareth Carlos [place] [address] [address] [place] [address] 11/21/2020 10:11:11 11/21/2020 14:47:41 Iron deficiency anemia 23080113 D50.9 ck labs hgb 9.0, hct 34.3, RDW 19, MCH 24.3 04/13/20 iron studies-p ferrous/vi t c Crohn's disease 02094337 K50.90 f/u w/GI: Dr Rakan kevinyclantony e 20 stable Entyvio infusions @ [facility] followed by Nolberto Adames Last seen three months ago by Dr. Adames. Gets monthly infusions of Entyvio. Denies any abdominal pain, blood in stool. Only frequent diarrhea -followed by [facility] CVA - cere brovascular accident due to cerebral artery occlusion 263515807 I63.50 atorv 40, asa/dip Referred to neurology on 06/05/20-p Has not seen neurology or gotten an appt. Will follow up-p - has not seen neuro-p Hypercholesterolemia 136 73929 E78.2 Chol 144, Trig 133, HDL 70, LDL 47.4 04/13/20 atrov 80 decreased to 40 Tolerating Atorvastat in 40 mg. No side effects Ataxic gait 06491318 R26 .0 erik Referred to neurology on 06/05/20-p -has not seen neuro-p Gastroesop hageal reflux disease 868468942 K21.9 omeprazole 20 Sees GI Insomnia 795650980 G47.0 0 quetiapine 50 stable w/meds Not taking quetiapine as he feels is not helpful On Zolpidem 10 mg Has visit with new psych today-p -awaiting psych call- received Impaired g lucose tolerance 5020835 R73.02 Hba1c 5.8 04/13/20 NCS diet, lifestyle change Metformin 500 mg bid, asa/dip recheck-p Heavy tobacco smoker 365 0603866 63498 Z72.0 cont.to smoke 4-5 cig/day, ready to quit req cessation assistance nicotine 21 mg/24 hr daily TD t/i risk factors and non-smokin g TD on reports stopped smoking on 05/19/20 reports nicotine patch was helpful. Reports restating smoking yesterday due to stress. Offered patches again but will hold off Prostate s pecific antigen above reference range 451894009 R97.20 PSA-5.20 04/13/20 Urology referral-p Allergic rhinitis 952161 04 J30.9 cetirizine 10 mg, fluticason e, montelukas t 10 Asthma 840978399 J45.90 9 On Proair Tension-type headache 39 4922263 G44.209 Mapap 650 At [facility] ed risk of nutritional deficit 114709167 Z91.89 MVI, calcium-vi t D3 Ensure nut. supp mirtaz 7.5 Depressive disorder 3548 9007 F32.9 cont rx denies s/sx's stable w/meds followed by psych -awaiting call- received Body mass index 20-24 - normal 881113501 Z68.21 Diet and exercise 69055 Jareth Carlos DO [facility] [address] [place] [address] 04/10/2021 15:38:42 04/10/2021 16:50:29 Gastroesophageal reflux disease 102290167 K21.9 omeprazole 20 Sees GI Iron defic iency anemia 38051990 D50.9 ck labs hgb 9.0, hct 34.3, RDW 19, MCH 24.3 04/13/20 iron studies-p ferrous/vi t c Crohn's disease 84997606 K50.90 f/u w/GI: Dr Rakan Adames dicyclomin e 20 stable Entyvio infusions @ [facility] followed by Nolberto Adames Last seen three months ago by Dr. Adames. Gets monthly infusions of Entyvio. Denies any abdominal pain, blood in stool. Only frequent diarrhea -followed by [facility] CVA - cere brovascular accident due to cerebral artery occlusion 379788871 I63.50 atorv 40, asa/dip Referred to neurology on 06/05/20-p Has not seen neurology or gotten an appt. Will follow up-p - has not seen neuro-pt to call-p Hypercholesterolemia 136 72386 E78.2 Chol 144, Trig 133, HDL 70, LDL 47.4 04/13/20 atrov 80 decreased to 40 Tolerating Atorvastat in 40 mg. No side effects Ataxic gait 60904061 R26 .0 erik Referred to neurology on 06/05/20-p -has not seen neuro-pt to call-p Insomnia 142397804 G47.0 0 quetiapine 50 stable w/meds Not taking quetiapine as he feels is not helpful On Zolpidem 10 mg Has visit with new psych today-p -awaiting psych call- received-a ppt 03/2021-p Impaired g lucose tolerance 0936389 R73.02 Hba1c 5.8 04/13/20 NCS diet, lifestyle change Metformin 500 mg bid, asa/dip recheck-p Heavy tobacco smoker 380 8609992 30469 Z72.0 cont.to smoke 4-5 cig/day, ready to quit req cessation assistance nicotine 21 mg/24 hr daily TD t/i risk factors and non-smokin g TD on reports stopped smoking on 05/19/20 reports nicotine patch was helpful. Reports restating smoking yesterday due to stress. Offered patches again but will hold off Prostate s pecific antigen above reference range 200902135 R97.20 PSA-5.20 04/13/20 Urology referral-p t refuses recheck-p Allergic rhinitis 631330 04 J30.9 cetirizine 10 mg, fluticason e, montelukas t 10 Asthma 136463835 J45.90 9 On Proair Tension-type headache 39 2905639 G44.209 Mapap 650 At [facility] ed risk of nutritional deficit 937444989 Z91.89 MVI, calcium-vi t D3 Ensure nut. supp mirtaz 7.5 Depressive disorder 3548 9007 F32.9 cont rx denies s/sx's stable w/meds followed by psych -awaiting call- received Body mass index 20-24 - normal 659305321 Z68.21 Diet and exercise Skin hypopigmented 52287 000 L81.5 Referral to dermatolog y- pt to call-p 69850 Jareth Carlos [place] [address] [address] [place] [address] 04/22/2021 15:35:12 04/22/2021 15:47:03 Screening for malignant neoplasm of colon 134558121 Z12.11 colonoscop y @[facility] - Dr. Nolberto Adames request report-p Adult heal th examination 989173504 Z00.01 CPE labs- done 04/22/21 Active or passive immunization 840520266 Z23 -p Screening for malignant neoplasm of prostate 279587981 Z12.5 -p Insomnia 678587290 G47.0 0 quetiapine 50 stable w/meds Not taking quetiapine as he feels is not helpful On Zolpidem 10 mg Has visit with new psych today-p -awaiting psych call- received-a ppt 03/2021- seen Gastroesop hageal reflux disease 944452095 K21.9 omeprazole 20 Sees GI Iron defic iency anemia 10599216 D50.9 ck labs hgb 9.0, hct 34.3, RDW 19, MCH 24.3 04/13/20 iron studies-p ferrous/vi t c Crohn's disease 64865946 K50.90 f/u w/GI: Dr Rakan Adames dicyclomin e 20 stable Entyvio infusions @ [facility] followed by Nolberto Adames Last seen three months ago by Dr. Adames. Gets monthly infusions of Entyvio. Denies any abdominal pain, blood in stool. Only frequent diarrhea -followed by [facility] CVA - cere brovascular accident due to cerebral artery occlusion 923588372 I63.50 atorv 40, asa/dip Referred to neurology on 06/05/20-p Has not seen neurology or gotten an appt. Will follow up-p - has not seen neuro-p Hypercholesterolemia 136 84739 E78.2 Chol 144, Trig 133, HDL 70, LDL 47.4 04/13/20 atrov 80 decreased to 40 Tolerating Atorvastat in 40 mg. No side effects Ataxic gait 22056042 R26 .0 cane Referred to neurology on 06/05/20-p -has not seen neuro--p Impaired g lucose tolerance 1526551 R73.02 Hba1c 5.8 04/13/20 NCS diet, lifestyle change Metformin 500 mg bid, asa/dip recheck-p Heavy tobacco smoker 562 8345706 55090 Z72.0 cont.to smoke 4-5 cig/day, ready to quit req cessation assistance nicotine 21 mg/24 hr daily TD t/i risk factors and non-smokin g TD on reports stopped smoking on 05/19/20 reports nicotine patch was helpful. Reports restating smoking yesterday due to stress. Offered patches again but will hold off Prostate s pecific antigen above reference range 611130383 R97.20 PSA-5.20 04/13/20 Urology referral-p t refuses recheck-p Allergic rhinitis 675400 04 J30.9 cetirizine 10 mg, fluticason e, montelukas t 10 Asthma 332384863 J45.90 9 On Proair Tension-type headache 39 8878620 G44.209 [facility]ap 650 [facility] of [facility] 317041466 Z91.89 MVI, calcium-vi t D3 Ensure nut. supp mirtaz 7.5 Depressive disorder 3548 9007 F32.9 cont rx denies s/sx's stable w/meds followed by psych -awaiting call- received Body mass index 20-24 - normal 006625322 Z68.21 Diet and exercise Skin hypopigmented 18872 000 L81.5 Referral to dermatolog y- p Health Concerns Section Related Observation LastModified by Organization Detai ls LastModified Time None Recorded Concern Status LastModified by Organization Details LastModified Time None Recorded Advance Directives Directive N: Payers Insurance Date Sequence Insurance Name Policy Number Policy Sifuentes Covered Member ID Sifuentes Member ID Guarantor Name 04/21/2021 1 [facility] - DOS PRIOR TO 2022 - DUAL ELIGIBLE (MEDICARE REPLACEMENT/AD VANTAGE - HMO) Dionicio Acosta [id number] Dionicio Acosta Notes Date Note Type Note Provider Name and Address Organization Details Recorded Time 08/08/2020 text/html 60 yr old Male h ere today for f/u. No new issues or concerns today. Wondering about the neurology and urology referrals. Vaccine update. Med refills dermatology - refusingUro - awaiting appt. Neuro - awaiting appt. Got stockings? no Labs not done per labusa -allergic rhinitis - stable -asthma - proair.- R ear pain- resolved -FANTA - iron studies - not done. -IGT - taking med. -hypercholesterolemia - stable w/meds-GERD- stable W/PPI -depressive disorder-stable -Insomnia-sleeping better quetiapine [address] THOM hall [place] - [place] 08/08/2020 09:11:53 10/08/2020 text/html 60 yo male prese nts for fu- telemed -camera not functioning HP UBT- neg ??GI- seen 08/2020 ??neuro- no appt yet- Chasidy ??psych- awaiting for call ??urology-?labs- no Crohns- followed by GI CVA- stable Hchol- on statin IGT- takig meds GERD- on PPI Asthma- stable FANTA- on iron STEVO hall [place] - [place] 10/08/2020 13:59:39 11/21/2020 text/html 60yomale present s forfu-telemed -camera not working labs done- results are not to be found- pt to redo awaiting neurology, urology and dermatology has heard from psych Crohns- followed by GI CVA- stable Hchol- on statin IGT- takig meds GERD- on PPI Asthma- stable FANTA- on iron STEVO hall [place] - [place] 11/21/2020 14:47:26 04/10/2021 text/html 60 yo male prese nts for fu- telemed-camera not working needs refill for sleep medis followed by janel- dory kiser 04/11/21 awaiting neurology, urology (refuses) and dermatology Crohns- followed by GICVA- stableHchol- on statinIGT- takig medsGERD- on PPIAsthma- stableIDA- on iron STEVOGLORIA hall [place] - [place] 04/10/2021 16:51:07 04/22/2021 text/html Medicare Annual Wellness VisitReported bypatient.Diet and Nutrition:healthy diet Fracture Risk:no history of fractures; no recent explained fracture; no sudden unexplained fractures; no previous musculoskeletal injuries Physical Activity:exercises on a regular basis; recent increase in physical activity; good physical condition Depression Risk:never feels sad, empty, or tearful; no loss of interest in activities; no significant changes in weight; no sleep disturbances or insomnia; no agitation; no loss of energy; no feelings of worthlessness or guilt; no thoughts of suicide; no history of depression; no history of mood disorders Orientation:no disorientation to time; no disorientation to date; no disorientation to place Concentration and Memory:no decreased concentrating ability; no memory lapses or loss; does not forget words Speech/Motor difficulties:no speech difficulties; no difficulty expressing formulated concepts; no difficulty with fine manipulative tasks; no difficulty writing/copying; no slowed reaction time; does not knock things over when trying to pick them up Hearing:no loss of hearing Vision:no vision problems Activities of Daily Living:able to bathe with limited or no assistance; able to contol urination and bowels; able to dress with limited or no assistance; able to feed self with limited or no assistance; able to get out of chair or bed with limited or no assistance; able to groom with limited or no assistance; able to toilet with limited or no assistance Instrumental Activities of Daily Living:able to do house work with limited or no assistance; able to grocery shop with limited or no assistance; able to manage medications with limited or no assistance; able to manage money with limited or no assistance; able to prepare meals with limited or no assistance; able to use the phone with limited or no assistance Falls Risk Assessment:no frequent falls while walking; no fall in the past year; no fall since last visit; no dizziness/vertigo Home Safety:no unsafe [place] hazzards; no unsafe stairs; no unsafe gas appliances; working smoke/CO detectors; wears protective head gear for biking/high velocity; use of seatbelts; practicing 'safer sex'; no vision or hearing loss while driving; no fire arms; has hand bars in the bathroom/shower; good lighting in the home 60 yo male presents for MAWV- telemed-Camera not working ??CPE labs- done 04/22/21 ??psych- yes??neuro- no??derm- no Colon- yesVacc-p STEVO hall [place] - [employer] 04/22/2021 15:46:51
[2025-01-18 08:06] LABS: HBS Num1 249.24 mIU/mL (0-7.99); HBsAGNum1 0.38 S/CO (0.00-0.99); Hepatitis B Core Antibody Nonreactive (Nonreactive); Hepatitis B Surface Antigen Negative (Negative); ~Hepatitis B Surface Antibody REACTIVE (Nonreactive)
== END 2025-01-17 14:06 | disposition home or self-care (01) ==
LOC: HO.LAB 14:05
PROVIDERS: Visit Provider Internal Medicine
DX: K91.850 Pouchitis (principal); K50.012 Crohn's disease of small intestine with intestinal obstruction
CPT/HCPCS: 36415; 80048; 80076; 82607; 82728; 82746; 83540; 85025; 85652; 86140; 86704; 86706; 87340